=== PATIENT | female | born 1965 | race Caucasian/White ===

== ENCOUNTER 2020-09-13 12:05 | Outpatient (CLI) | payer BC ==
--- NOTE | 2020-09-13 15:25 | XRAY Report ---
PROCEDURE: Hip w/Pelvis 2-3V LT INDICATIONS: PAIN L HIP TECHNIQUE: AP pelvis with lateral view(s) of the bilateral hip(s). COMPARISON: None. FINDINGS: Bones: No fractures or dislocations. Pelvic ring appears intact. No suspicious bony lesions. Soft tissues: The visualized bowel gas pattern is normal. No suspicious soft tissue calcifications. IMPRESSION: This is a normal study. Reviewed by: Christopher Jones MD on 09/13/2020 3:24 PM PST Approved by: Christopher Jones MD on 09/13/2020 3:24 PM PST Station ID: [id number]
== END 2020-09-13 12:06 | disposition home or self-care (01) ==
LOC: DI 12:05
PROVIDERS: ATTEND Internal Medicine
DX: M25.552 Pain in left hip (principal)